=== PATIENT | female | born 1980 | race Caucasian/White ===

== ENCOUNTER → 2019-05-10 | Outpatient (CLI) | payer OTHER ==
[~2019-05-10] MED LIST: ALBU90OI6 INH; BENZ100A PO; CIPR500 PO; DROSPIRENONE; ESCI20 PO; ETHINYL ESTRADIOL; GUAI100SY PO; HYDACE5 PO; OMEP20ER; OMEP20ER PO; ONDA4 PO; PRENZ PO; PROM25 PO; RANI150 PO
== END | disposition home or self-care (01) ==
LOC: LAB 11:00 → LAB SHORT 11:00
PROVIDERS: Nurse Practitioner Obstetrics & Gynecology
DX: O60.03 Preterm labor without delivery, third trimester (principal)
CPT/HCPCS: 82731